=== PATIENT | female | born 1935 | race Caucasian/White ===

== ENCOUNTER → 2017-08-03 | Outpatient (CLI) | payer MEDICARE, OTHER ==
[~2017-08-03] MED LIST: ATORVASTATIN 8080 MG PO; HYDROCHLOROTHIA25 M1 PO; K-DUR 20MEQ TA20 MEQ PO; LISINOPRIL40 MG PO; OMEPRAZOLE20 MG PO; [UNRECOGNIZED DRUG - OTHER] PO
--- NOTE | 2017-08-07 17:28 | RADIOLOGY REPORT PS360 ---
DIG MAMM-SCREEN JGIAR W/CAD CAD Screening ORDERING PHYSICIAN : Berhane Castro MD PATIENT AGE: 81 years GENDER: Female COMPARISON: Previous mammograms: June 2013, 2011, July 2014 and 2014 INDICATION: Routine screening . No hormones. Numerous skin moles . No new complaints Family history: mother with breast cancer postmenopausal in her 60s Previous benign biopsy superior right breast TECHNIQUE: Standard CC and MLO images were obtained. R2 CAD reviewed. FINDINGS: Low-density breast with no significant new areas of concern. Skin mole size intact bilaterally again noted. Majority are marked on the image. RIGHT BREAST: Stable Small density at the deep lateral right breast best seen on MLO view,. It is unchanged 09/2013 . This is a small excisional biopsy with scar suggested on history sheet at superior margin of the areola. No no clips nor metallic markers... Most likely skin mole seen at very deep medial aspect inferior right breast Labeled A. The well-defined halo-like anterior margin supports this is a skin mole... On 2010 right mammogram, partially imaged skin mole was marked in this area on that prior cc view & likely accounts for this focus. It appears fairly stable since to 2016 mammogram as well , CT abdomen included inferior breast September 2016 show no additional densities otherwise of concern at the inferior most right breast otherwise.. This can be followed safely. Suggest inspecting skin in this area to verify the clinically the patient should have a skin mole, inferior 5 o'clock position towards inframammary fold. LEFT BREAST: No areas of concern Scattered cysts skin moles minimal vascular calcification. Follow-up in one year recommended IMPRESSION: No significant change . no new areas of significant concern.. Likely skin mole at the deep inferior right breast similar to last years study and likely present since 2010. Note comments in text Follow-up in one year recommended BI-RADS CATEGORY: 2_Benign RECOMMENDED FOLLOWUP: 12M 12 MONTH FOLLOW-UP (A letter has been sent to the patient regarding results of the study.)
== END ==
LOC: RAD 09:44
DX: Z12.31 Encounter for screening mammogram for malignant neoplasm of breast (principal)
CPT/HCPCS: G0202